=== PATIENT | male | born 1960 | race Asian ===

== ENCOUNTER → 2016-03-25 | Outpatient (CLI) | payer OTHER ==
--- NOTE | 2016-03-25 12:15 | DX ---
Left Ankle, 3 Views, at 11:07 a.m. Clinical History: 55-year-old male with pain and swelling in the left ankle after a twisting injury while playing volleyball on March 24, 2016. ICD-10 Diagnostic Code: S93.402A. Comparison Study: None. Findings: There is moderate soft tissue swelling about the ankle, lateral greater than medial. There is no acute fracture or dislocation, however. The mortise is maintained. The talar dome is well-conto ured. The subtalar joint is normal, and the talar neck is intact. Impression: Ankle sprain.
== END ==
LOC: CIMAGING 10:57
PROVIDERS: ATTEND Family Medicine
DX: S93.402A Sprain of unspecified ligament of left ankle, initial encounter (principal)
CPT/HCPCS: 73610-PO